=== PATIENT | male | born 2000 | race Caucasian/White ===

== ENCOUNTER 2024-08-17 14:10 | Emergency (ER) | payer OTHER, SELFPAY ==
[2024-08-17] VITALS (7 sets, daily range): BP systolic 107–122; BP diastolic 57–72; PULSE 51–86; RESP 16–28; TEMP 36.5–36.9; O2SAT 95–100; BMI 16.8
--- NOTE | 2024-08-17 | ECG_ITS ---
Test Reason : CP Blood Pressure : */* mmHG Vent. Rate : 79 BPM Atrial Rate : 79 BPM P-R Int : 158 ms QRS Dur : 96 ms QT Int : 362 ms P-R-T Axes : 40 87 68 degrees QTcB Int : 415 ms Normal sinus rhythm Normal ECG No previous ECGs available Referred By: Generic ED Physician Electronically Signed By: MATTHEW BROWN MD
--- NOTE | ~2024-08-17 | CT_ITS ---
CLINICAL HISTORY: abd pain, N V, D, wt loss CT abdomen and pelvis with contrast Comparison: CT - CT ABDOMEN PELVIS W IV CON - 08/17/24 17:34 EDT Findings: No consolidation or effusion. Unremarkable gallbladder and solid organs. No urolithiasis. No bowel obstruction, pneumoperitoneum, or pneumatosis. Multiple mildly thickened small bowel loops, predominantly within the left hemiabdomen. Multiple fluid-filled small bowel loops are present. Pelvic contents are within normal limits. Appendix is not seen. No acute fracture. IMPRESSION: 1. Findings suggestive of gastroenteritis in the appropriate clinical setting. This document has been electronically signed by: Moiz Gayle MD on 08/17/2024 18:24:47
--- NOTE | ~2024-08-17 | XR_ITS ---
EXAMINATION: XR CHEST CLINICAL INFORMATION: pain COMPARISON: None available. TECHNIQUE: 2 views of the chest were obtained. FINDINGS: No significant abnormality is noted involving the heart, lungs, mediastinum, bony thorax or soft tissues. XR/XR chest 2V IMPRESSION: Unremarkable examination. Electronically signed by: Onel Rendon MD 08/17/2024 04:26 PM EDT
--- NOTE | 2024-08-17 14:24 | ED_ITS ---
HPI - General Adult General Chief complaint: General Medical Stated complaint: sob chest pain fever Time Seen by Provider: 08/17/24 14:31 Source: patient, RN notes reviewed and old records reviewed Mode of arrival: ambulatory History of Present Illness ED Provider: Ashia Cline PA-C HPI narrative: 23-year-old male with a past medical history Crohn's disease, Gilda-Danlos syndrome, ETOH abuse, cigarette smoker, presenting to the ED complaining of intermittent chest pain, SOB, lightheadedness/dizziness, generalized fatigue/weakness, intermittent fevers, chills, abdominal pain, nausea, vomiting, diarrhea, black stool, JEREZ, myalgias x 8 days. Reports decreased p.o. intake. Also reports ?multiple syncopal episodes most recently yesterday states after walking up the stairs became short of breath and passed out in bed, awakening this morning. Reports > 25 lb weight loss in 8 days. Also admits to ETOH use nightly with history of ETOH withdrawal seizures, admits to drinking 1-2 beers daily, and marijuana use. Last drink last night. Related Data Previous Rx's ?Medication ?Instructions ?Recorded ondansetron 4 mg disintegrating 4 mg PO Q8H PRN nausea and 08/17/24 tablet vomiting #10 tabs Allergies Allergy/AdvReac Type Severity Reaction Status Date / Time tree nut Allergy Anaphylaxis Verified 08/17/24 14:22 latex AdvReac Hives Verified 08/17/24 14:22 Review of Systems 2 Review of Systems: Yes all other systems are reviewed and are negative Constitutional: Constitutional: Reports as per HPI Neurologic: Denies Abnormal speech present [facility] Past Medical History Attestation statement: The following information was validated with the patient. Source: old records reviewed Social History Social History Alcohol intake: current Alcohol type: beer and hard liquor Smoked in Last 30 Days: Yes Use of substances other than those prescribed or required for medical reasons: Yes Substance Use Type: Marijuana Advance Directives: No Advance Directives Information Provided: No Physical Exam ED Vital Signs: Vital Signs - 24 hr 08/17/24 14:19 08/17/24 14:40 08/17/24 17:45 Temperature 98.5 F 97.7 F 98.3 F Pulse Rate 86 67 71 Respiratory Rate 28 H 16 16 Blood Pressure 117/69 120/72 108/57 L Pulse Oximetry 100 99 95 Oxygen Delivery Method Room Air Room Air Room Air 08/17/24 17:56 08/17/24 17:57 08/17/24 17:57 Temperature Pulse Rate 51 64 63 Respiratory Rate Blood Pressure 117/69 111/63 107/69 Pulse Oximetry Oxygen Delivery Method 08/17/24 20:07 Temperature 98.1 F Pulse Rate 60 Respiratory Rate 20 Blood Pressure 122/70 Pulse Oximetry 98 Oxygen Delivery Method Room Air BMI result Body Mass Index 16.8 Const General: cooperative, no acute distress, alert and anxious Orientation/consciousness: patient oriented x3 Limitations: no limitations HENMT Head: Yes normal to inspection and Yes atraumatic Ears: hearing grossly normal bilaterally General nose exam: Normal external nose present Face and sinus: Yes normal facial exam Eyes General: appearance normal, both eyes and all related structures Pupils: Equal, round and reactive pupils present EOM: EOMs intact bilaterally Neck Neck: Yes normal visual inspection and Yes no meningeal signs Chest Other: + reproducible anterior chest wall tenderness. No rashes, erythema or crepitus. No flail chest Chest palpation & inspection: normal inspection of the chest, no crepitus and tenderness Resp Effort & Inspection: normal respiratory effort and no respiratory distress Auscultation: clear to auscultation bilaterally, no crackles and no wheezes Cardio Rate: regular rate Heart sounds: S1 normal heart sound present and S2 normal heart sound present GI Inspection: Yes normal to inspection Palpation (GI): Soft to palpation, Tenderness to palpation present (GI) in the epigastrum; with no rebound tenderness, no guarding and not rigid Skin Rashes: no rashes Wounds: no wounds Neuro General: patient oriented x3, tone normal, moves all extremities, no meningeal signs, no focal motor deficits and CN's II-XI intact bilaterally Cranial nerves: Yes CN's II-XII intact bilaterally and Yes Equal, round and reactive pupils present Cognition (Neuro): normal cognition Speech: No Abnormal speech present Extrem General: Yes normal to inspection and Yes no pedal edema Course Course Course Narrative: RME, this is a rapid medical exam performed by Bk Zelaya please refer to primary provider for complete H&P- 23 year old male presents for evaluation of chest pain and fever. EKG done on arrival. Plan for labs, viral swabs and a chest x-ray -1646--no leukocytosis. Labs otherwise unremarkable/reassuring. Troponin negative. D-dimer WNL > PE unlikely -occult stool negative. Viral testing negative -ethanol negative XR chest 2V IMPRESSION: Unremarkable examination. -1800--ED care transferred to LOGISTICS TECH Matthew pending CT AP, STUBBS & orthostatics, PO trial and re-evaluation Reevaluation(s) Reevaluation #1: Kandice Hogan, DIVINE 08/17/2024. Drug abuse screen is positive for marijuana. Orthostatic vital signs are negative. CT of the abdomen and pelvis revealing findings concerning for gastroenteritis otherwise without acute concerning findings, known surgical findings. Do not feel that he warrants admission at this time. He was given eliana carmela and crackers who tolerated this without vomiting. At this time feel he is stable for discharge home, outpatient follow-up with primary care provider, will send with prescription for Zofran, reviewed bland diet, strict return precautions. CT abdomen and pelvis with contrast Comparison: CT - CT ABDOMEN PELVIS W IV CON - 08/17/24 17:34 EDT Findings: No consolidation or effusion. Unremarkable gallbladder and solid organs. No urolithiasis. No bowel obstruction, pneumoperitoneum, or pneumatosis. Multiple mildly thickened small bowel loops, predominantly within the left hemiabdomen. Multiple fluid-filled small bowel loops are present. Pelvic contents are within normal limits. Appendix is not seen. No acute fracture. IMPRESSION: 1. Findings suggestive of gastroenteritis in the appropriate clinical setting. Medications Administered Discontinued Medications Generic Name Dose Route Start Last Admin Trade Name Freq PRN Reason Stop Dose Admin Lactated Ringer's 1,000 mls @ 999 mls/hr 08/17/24 15:00 08/17/24 17:33 Lr IV 08/17/24 16:00 Infused .Q1H1M ARIEL Infusion Lactated Ringer's 1,000 mls @ 999 mls/hr 08/17/24 15:00 08/17/24 17:33 Lr IV 08/17/24 16:00 Infused .Q1H1M ARIEL Infusion Iohexol 100 ml 08/17/24 17:46 08/17/24 17:47 Iohexol 350 Mg/Ml 100 Ml Infus..Btl IV 08/17/24 17:47 85 ml ONCE ONE Administration Medical Decision Making Medical Decision Making MDM Narrative: 23-year-old male with a past medical history Crohn's disease, Gilda-Danlos syndrome, ETOH abuse, cigarette smoker, presenting to the ED complaining of intermittent chest pain, SOB, lightheadedness/dizziness, generalized fatigue/weakness, intermittent fevers, chills, abdominal pain, nausea, vomiting, diarrhea, black stool, JEREZ, myalgias x 8 days. Reports decreased p.o. intake. Also reports ?multiple syncopal episodes & >25 lb weight loss in 8 days. On exam initially tachypneic, likely from anxiety, awake and alert, thin, NAD, lungs CTA, abdomen is soft with epigastric/diffuse tenderness without rebound or guarding, no focal deficits. Concern for viral illness vs gastroenteritis vs atypical ACS vs ?PE vs pancreatitis/other intra-abdominal pathology vs PUD/GI bleed vs Crohn's flare. Lower suspicion for dissection or ICH or appendicitis/diverticulitis Plan: EKG, labs, UA, viral testing, CXR, IVF, CT AP, anticipated admission Please refer to course for remaining clinical decision making, interpretation of labs/imaging results, and discussions with consultants and/or family members. Differential Diagnosis Differential Diagnoses: The differential diagnosis associated with the presentation includes As above Admission/Observation Consideration of admission/observation: Escalation of care including admission/observation considered Lab Data [facility] Lab Attestation statement: I reviewed the patient's lab results. 08/17/24 14:46 08/17/24 14:46 Labs: Lab Results 08/17/24 08/17/24 08/17/24 Range/Units 14:46 15:36 17:53 WBC 5.3 (4.8-10.8) X10*3/uL RBC 4.65 (4.60-5.80) X10*6/uL Hgb 14.9 (14.0-18.0) g/dl Hct 42.1 (42.0-52.0) % MCV 90.5 (80.0-98.0) fL MCH 32.0 (27.0-33.0) pg MCHC 35.4 (31.0-36.0) g/dl RDW 12.3 (11.0-16.0) % Plt Count 230 (160-400) X10*3/uL MPV 9.4 (9.4-12.4) fL Immature Gran % (Auto) 0.2 (0.0-0.4) % Neut % (Auto) 45.1 (45-73) % Lymph % (Auto) 40.3 H (20-40) % Hopkins % (Auto) 10.4 (2-11) % Eos % (Auto) 3.2 (0-4) % Baso % (Auto) 0.8 (0-2) % Lymph # (Auto) 2.1 (1.2-4.9) X10*3/uL Hopkins # (Auto) 0.6 (0.1-1.2) X10*3/uL Eos # (Auto) 0.2 (0.0-0.4) X10*3/uL Baso # (Auto) 0.0 (0.0-0.2) X10*3/uL Abs Immat Gran (auto) 0.01 (0.00-0.03) X10*3/uL Absolute Neuts (auto) 2.4 (2.0-8.3) x10*3/uL Absolute Nucleated RBC 0.000 (0.0-0.012) X10*3/uL Nucleated RBC % (auto) 0.0 (0.0-0.2) /100WBC D-Dimer High Sensitivty < 150 NG/ML Sodium 140 (135-145) mmol/L Potassium 3.5 (3.3-5.1) mmol/L Chloride 110 H (96-108) mmol/L Carbon Dioxide 22 (22-29) mmol/L Anion Gap 12 (12-20) BUN 10 (9-16) mg/dL Creatinine 0.79 (0.5-1.4) mg/dL Estim Creat Clear Calc 135.7 Estimated GFR > 60 Random Glucose 90 (60-115) mg/dL Calcium 9.2 (8.4-10.2) mg/dL Magnesium 2.3 (1.6-2.6) mg/dL Total Bilirubin 0.5 (0.0-1.0) mg/dL AST 21 (5-37) U/L ALT 13 (0-40) U/L Alkaline Phosphatase 81 (39-117) U/L Total Creatine Kinase 134 (38-174) U/L Troponin I High Sens < 2.7 (<3.5-35.0) ng/L B-Natriuretic Peptide < 10 (<100) pg/mL Total Protein 6.7 (6.5-8.0) g/dL Albumin 4.5 (3.5-5.0) g/dL Lipase 24 (8-78) U/L Stool Occult Blood NEGATIVE (NEGATIVE) Urine Opiates Screen Not Detected (Not Detect) Ur Buprenorphine Scrn Not Detected (Not Detect) ng/mL Ur Oxycodone Screen Not Detected (Not Detect) ng/mL Urine Methadone Screen Not Detected (Not Detect) ng/mL Urine Fentanyl Screen Not Detected (Not Detect) Ur Barbiturates Screen Not Detected (Not Detect) Ur Phencyclidine Scrn Not Detected (Not Detect) Ur Amphetamines Screen Not Detected (Not Detect) U Benzodiazepines Scrn Not Detected (Not Detect) Urine Cocaine Screen Not Detected (Not Detect) U Marijuana (THC) Screen POSITIVE H (Not Detect) Ethyl Alcohol 11 mg/dL Influenza Type A (PCR) NEGATIVE (Negative) Influenza Type B (PCR) NEGATIVE (Negative) RSV RNA Qual (PCR) NEGATIVE (Negative) SARS-CoV-2 RNA (RT-PCR) NEGATIVE (Negative) Independent Interpretation I performed an independent interpretation of an: EKG, Plain X-Ray and CT Scan Radiology Impression Discussion of test interpretation with radiology: I have reviewed the radiologist's reading. External Record Review External record reviewed: Inpatient record, Office record, Outpatient record, Prior outpatient labs, Prior outpatient radiology, Primary care record and Outside ED record Tests considered The following testing was considered but not selected: As above Prescription Management I considered prescription management with: Pain Medication Chronic Conditions Patient?s care impacted by: Other Social Determinants Patient?s care significantly limited by Social Determinants of Health including: Inadequate housing, Low income, Alcoholism and drug addiction in family, Problems related to primary support group, Problems related to employment and Other Social Determinant of Health Discharge Plan Discharge Clinical Impression: Gastroenteritis, Fatigue, Weight loss Patient Disposition: Home, Self-Care Instructions: Gastroenteritis (ED) Additional Instructions: Workup today reveals that you are suffering from what is known as gastroenteritis, GI illness that may be secondary to something that you consumed/a versus a viral illness. We are sending a prescription for Zofran to the pharmacy to help with nausea/vomiting. Please take this as prescribed as needed. Introduce a bland diet including crackers, bananas, rice, soup, toast, and boiled vegetables. This may progress to plain baked or boiled chicken or turkey. Avoid dairy products or foods high in fat or grease. Please contact your primary care provider to arrange for a follow-up visit. You may return to emergency department any new or worsening symptoms or concerns Prescriptions: New ondansetron 4 mg tablet,disintegrating 4 mg PO Q8H PRN (Reason: nausea and vomiting) Qty: 10 0RF Referrals: Physician,None [Primary Care Provider] - Print Language: Yi
--- NOTE | 2024-08-17 14:48 | PC.NURSE ---
Patient A&O x 3. Patient presents to ED after not feeling well for the last week and presents with chest pain that started yesterday. Pain started on the left side but travels now to collar and abdomen. Pain rated 2/10. Patient c/o off/on n/v denies blood in the vomit. c/o diarrhea patient states my diarrhea is black/dark brown , patient has hx of crohns. 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 PMH EOTH last drink was 6pm last night denies seizures. Provider in to see patient. VSS and up to date. Plan of care on going.
[2024-08-17 14:50] LABS: MANUAL DIFF FLAG NO
[2024-08-17 14:56] LABS: Basophils Percent Auto 0.8 % (0-2); Eosinophils Absolute Auto 0.2 X10*3/uL (0.0-0.4); Eosinophils Percent Auto 3.2 % (0-4); Hematocrit 42.1 % (42.0-52.0); Hemoglobin 14.9 g/dl (14.0-18.0); Imm Gran Abs Auto 0.01 X10*3/uL (0.00-0.03); Imm Gran Pct Auto 0.2 % (0.0-0.4); Lymphocytes Absolute Auto 2.1 X10*3/uL (1.2-4.9); Lymphocytes Percent Auto 40.3 % (20-40); Mean Corpuscular HGB Conc 35.4 g/dl (31.0-36.0); Mean Corpuscular Volume 90.5 fL (80.0-98.0); Mean Platelet Volume 9.4 fL (9.4-12.4); Monocytes Absolute Auto 0.6 X10*3/uL (0.1-1.2); Monocytes Percent Auto 10.4 % (2-11); Neutrophils Absolute Auto 2.4 x10*3/uL (2.0-8.3); Neutrophils Percent Auto 45.1 % (45-73); Platelet Count 230 X10*3/uL (160-400); Red Blood Count 4.65 X10*6/uL (4.60-5.80); Red Cell Distribution Width 12.3 % (11.0-16.0); White Blood Count 5.3 X10*3/uL (4.8-10.8)
[2024-08-17 15:10] LABS: Magnesium 2.3 mg/dL (1.6-2.6)
[2024-08-17 15:16] LABS: Alanine Aminotransferase 13 U/L (0-40); Albumin Level 4.5 g/dL (3.5-5.0); Alkaline Phosphatase 81 U/L (39-117); Anion Gap 12 (12-20); Aspartate Amino Transferase 21 U/L (5-37); Bilirubin Total 0.5 mg/dL (0.0-1.0); Blood Urea Nitrogen 10 mg/dL (9-16); Calcium 9.2 mg/dL (8.4-10.2); Carbon Dioxide 22 mmol/L (22-29); Chloride 110 mmol/L (96-108); Creatinine Clr Calc Pharmacy 135.7; Estimated Glomerular Filt Rate > 60; Glucose Random 90 mg/dL (60-115); Lipase 24 U/L (8-78); Potassium 3.5 mmol/L (3.3-5.1); Sodium 140 mmol/L (135-145); Total Protein 6.7 g/dL (6.5-8.0)
[2024-08-17 15:17] LABS: Troponin-I High Sensitivity < 2.7 ng/L (<3.5-35.0)
[2024-08-17 15:21] LABS: Ethanol 11 mg/dL
[2024-08-17 15:28] LABS: Influenza A PCR NEGATIVE (Negative); Influenza B PCR NEGATIVE (Negative); Resp Syncy Virus RNA Qual PCR NEGATIVE (Negative); SARS COV2 PCR INHOUSE NEGATIVE (Negative)
[2024-08-17] MEDS: Lactated Ringers 1,000 ML 999 ML IV ×2 (15:36→15:37)
[2024-08-17 15:41] LABS: B Type Natriuretic Peptide < 10 pg/mL (<100)
[2024-08-17 15:45] LABS: OBS Int Ctl Valid YES; OBS1 NEGATIVE (NEGATIVE)
--- NOTE | 2024-08-17 15:46 | PC.NURSE ---
pt sig. anxious, hyperverbal, agitated regarding multiple IV sticks.
[2024-08-17 16:12] LABS: D Dimer High Sensitivity < 150 NG/ML
[2024-08-17] MEDS: iohexoL 350 MG/ML 100 ML INFUS..BTL IV (17:47)
--- NOTE | 2024-08-17 17:57 | PC.NURSE ---
Ortho statics perfomred and were negative. Patient denies dizziness/ lightheadedness. Urine sample collected/sent to lab
--- OUTSIDE RECORDS SUMMARY | 2024-08-17 18:11 | XMS_ITS | Clinical Summary ---
Author Organization [facility] Address [address] [place] [address] Phone Care Team Providers Care Hearse Driver Name Role Phone Physician, No Pcp Primary Care Provider Unavaila ble Allergies Active Allergy Reactions Criticality Noted Date Comments Latex Hives Medium 01/17/2024 Ibuprofen GI intolerance Low 01/17/2024 Medications No known medications Active Problems Problem Noted Date Diagnosed Date Encounter for screening exam ination for mental health and behavioral disorders 01/17/2024 Medical History Medical History Date Comments Asthma Hypertension GERD (gastroesophageal reflux disease) Social History Tobacco Use Types Packs/Day Years Used Date Smoking Tobacco: Never Assessed Sex and Gender Information Value Date Recorded Sex Assigned at Male 01/17/2024 2:32 PM EST Legal Sex Male 12:40 PM EST Gender Identity Male 01/17/2024 2:32 PM EST Sexual Orientation Choose not to disclose 2023 2:32 PM EST Obstetrics History Last Filed Vital Signs Vital Sign Reading Time Taken Comments Blood Pressure 118/77 01/17/2024 7:13 PM EST Pulse 68 01/17/2024 7:13 PM EST Temperature 36.7 ??C (98.1 ??F) 01/17/2024 7:13 PM ES T Respiratory Rate 18 01/17/2024 7:13 PM EST Oxygen Saturation 100% 01/17/2024 7:13 PM EST Inhaled Oxygen Concentration - - Weight 61.2 kg (135 lb) 01/17/2024 3:37 PM EST Height 193 cm (6' 4 ) 01/17/2024 3:37 PM EST Body Mass Index 16.43 01/17/2024 3:37 PM EST Plan of Treatment Health Maintenance Due Date Last Done Comments HPV Vaccines (1 - Male 3-dos e series) 09/23/2015 Meningococcal B Vaccine (1 o f 2 - Standard) 2016 DTaP,Tdap,and Td Vaccines (1 - Tdap) 09/23/2019 Hepatitis B Vaccines (1 of 3 - 19+ 3-dose series) 09/23/2019 COVID-19 Vaccine ( - 2023-2 5 season) 2023 Depression Screening 01/17/2024 HIV Screening 01/17/2024 Hepatitis C Screening 01/17/2024 Social Influencers of Health Screening 01/17/2024 Influenza Vaccine (Season Ended) 2024 HIB Vaccines Aged Out No longer eligi ble based on patient's age to complete this topic Hepatitis A Vaccines Aged Out No long er eligible based on patient's age to complete this topic IPV Vaccines Aged Out No longer eligi ble based on patient's age to complete this topic MMR Vaccines Aged Out No longer eligi ble based on patient's age to complete this topic Meningococcal ACWY Vaccine Aged Out N o longer eligible based on patient's age to complete this topic Pneumococcal Vaccine: Pediat rics (0 to 5 Years) and At-Risk Patients (6 to 64 Years) Aged Out No longer eligible b ased on patient's age to complete this topic RSV Immunization Patients Un david 20 months Aged Out No longer eligible b ased on patient's age to complete this topic Varicella Vaccines Aged Out No longer eligible based on patient's age to complete this topic [place] [id number] Care Teams Hearse Driver Relationship Specialty Start Date End Date Physician, No Pcp PCP - General 01/17/24
[2024-08-17 18:19] LABS: Amphetamine Screen Urine Not Detected (Not Detect); Barbiturates, Urine Not Detected (Not Detect); Benzodiazepines Screen Urine Not Detected (Not Detect); Buprenorphine Scr Not Detected (Not Detect); Cannabinoid Screen Urine POSITIVE (Not Detect); Cocaine Screen Urine Not Detected (Not Detect); Fentanyl, urine Not Detected (Not Detect); Methadone Screen, Urine Not Detected (Not Detect); Opiate Screen Urine Not Detected (Not Detect); Oxycodone Screen Urine Not Detected (Not Detect); Phencyclidine Screen Urine Not Detected (Not Detect)
--- NOTE | 2024-08-17 20:41 | PC.NURSE ---
assumed care of this Pt at 1900. Pt A&Ox3, reports / ABD pain and increased anxiety from being here in hospital. Pt given saltine crackers and eliana carmela. Pt tolerated without vomiting. Requesting to be discharged. Provider Daniela Hogan made aware.
== END 2024-08-17 21:05 | disposition home or self-care (01) ==
PROVIDERS: Physician Assistant; Emergency Provider Emergency Medicine Emergency Medical Services
DX: K52.9 Noninfective gastroenteritis and colitis, unspecified (principal); R06.02 Shortness of breath; R07.89 Other chest pain; Q79.60 Ehlers-Danlos syndrome, unspecified; R42 Dizziness and giddiness; R50.9 Fever, unspecified; R53.83 Other fatigue; R10.2 Pelvic and perineal pain; R11.2 Nausea with vomiting, unspecified; Z03.818 Encounter for observation for suspected exposure to other biological agents ruled out; Z79.899 Other long term (current) drug therapy
CPT/HCPCS: 0241U; 36415; 71046; 74177; 80053; 80307; 82272; 82550; 83690; 83735; 83880; 84484; 85025; 85379; 93005; 96360; 96361; 99284; 99285; J7120; Q9967

== ENCOUNTER → 2024-08-17 14:12 | Outpatient (BNV) | payer OTHER, SELFPAY | PROVIDERS: Emergency Provider Emergency Medicine Emergency Medical Services; Visit Provider Internal Medicine Cardiovascular Disease | DX: R07.9 Chest pain, unspecified (principal) | CPT/HCPCS: 93010 ==

== ENCOUNTER → 2024-08-17 14:25 | Outpatient (BNV) | payer OTHER, SELFPAY | PROVIDERS: Emergency Provider Emergency Medicine Emergency Medical Services; Visit Provider Radiology Diagnostic Radiology | DX: R10.9 Unspecified abdominal pain (principal); R07.9 Chest pain, unspecified | CPT/HCPCS: 71046; 74177 ==